=== PATIENT | male | born 1975 | race Caucasian/White ===

== ENCOUNTER 2017-02-07 15:41 | Inpatient (IN) | payer OTHER ==
[~2017-02-07] VITALS: Ht 172.7 cm; Wt 53.5 kg
[~2017-02-07 15:41] MED LIST: BUPR2TAB3 SL; INDO50CA PO; POLY17PO4 GT; QUET50TA PO; RANI150T12 PO; [UNRECOGNIZED DRUG - CODE] TP
--- NOTE | 2017-02-07 19:25 | NUR ---
PRE-ADMISSION NOTE Patient is a 42-year-old male, seen at intake, alert and oriented x4, noted with moderate anxiety and a headache at this time. SN discussed with patient the admission policies of the unit. Patient is coherent and able to respond to questions appropriately. Patient is ambulatory with steady gait. Vital signs taken and as follows: BP: 141/74, P: 82, R: 18, O2: 98%, T: 98.6, Pain: 7/10. Patient verbalized understanding of instructions and teachings regarding disposal of controlled home medications, unit protocols such as taking of vital signs Q4H and handling and disposal of contraband. Will continue with admission upon pt's arrival on the unit.
[2017-02-07] MEDS ORDERED: LORAZEPAM 2 MG/1 ML VIAL IM PRN (19:45)
[2017-02-07] MEDS ORDERED: ONDANSETRON ODT 4 MG TAB.RAPDIS SL PRN (19:45)
[2017-02-07] MEDS ORDERED: ONDANSETRON 4 MG/2 ML VIAL IM PRN (19:45)
[2017-02-07] MEDS ORDERED: LOPERAMIDE HCL 2 MG CAPSULE PO PRN ×2 (19:45)
[2017-02-07] MEDS ORDERED: DIAZEPAM 5 MG TABLET PO PRN (19:45)
[2017-02-07] MEDS ORDERED: DICYCLOMINE HCL 20 MG TABLET PO PRN (19:45)
[2017-02-07] MEDS ORDERED: diphenhydrAMINE 50 MG CAPSULE PO PRN (19:45)
[2017-02-07] MEDS ORDERED: DIAZEPAM 10 MG TABLET PO PRN (19:45)
[2017-02-07] MEDS ORDERED: MAG HYDROX/AL HYDROX/SIMETH 30 ML LIQUID UDC PO PRN (19:45)
[2017-02-07] MEDS ORDERED: MIRALAX 17 GM POWD.PACK PO PRN (19:45)
[2017-02-07] MEDS ORDERED: IBUPROFEN 400 MG TABLET PO PRN (19:45)
[2017-02-07] MEDS ORDERED: BUPRENORPHINE HCL 2 MG TAB.SUBL SL PRN (19:45)
[2017-02-07] MEDS: METHOCARBAMOL 750 MG TABLET PO PRN (19:53)
[2017-02-07] MEDS: CLONIDINE HCL 0.1 MG TABLET PO PRN (19:53)
[2017-02-07] MEDS: DIAZEPAM 10 MG TABLET PO PRN (19:54)
--- NOTE | 2017-02-07 19:55 | NUR ---
PRN CLONIDINE, VALIUM, & ROBAXIN Patient has a BP of 141/74, reports moderate anxiety, headache of 8/10 and generalized body aches of 7/10. PRN Clonidine, Valium, and Robaxin given PO. Patient's respirations are even and unlabored, 18/min at this time. Patient denies SOB or chest pain. Patient's current CIWA is 15, COWS is 15. Patient reports that he has had loose bowel movements for that past 2 days, however, pt states he took Imodium prior to his arrival; therefore patient refused PRN Imodium. Safety measures in place, bed locked in low position, side rails up x2, call light within reach. Will reassess in one hour.
[2017-02-07 19:56] LABS: *AMPHETAMINE, URINE NEGATIVE (NEGATIVE); *BARBITURATE, URINE NEGATIVE (NEGATIVE); *CANNABINOID, URINE POSITIVE (NEGATIVE); *COCCAINE, URINE NEGATIVE (NEGATIVE); *OPIATE, URINE POSITIVE (NEGATIVE); *PHENCYCLIDINE SCREEN,URINE NEGATIVE (NEGATIVE)
[2017-02-07] MEDS ORDERED: CLONIDINE HCL 0.1 MG TABLET ONE (19:56)
[2017-02-07] MEDS ORDERED: LOPERAMIDE HCL 2 MG CAPSULE ONE (19:56)
[2017-02-07] MEDS ORDERED: METHOCARBAMOL 750 MG TABLET ONE (19:56)
[2017-02-07 20:00] VITALS: BP 141/74
[2017-02-07] MEDS ORDERED: DIAZEPAM 10 MG TABLET ONE (20:08)
[2017-02-07] MEDS ORDERED: PANT40TA4 PO (20:09)
[2017-02-07] MEDS ORDERED: OMEP20TA20 PO (20:09)
[2017-02-07] MEDS ORDERED: VALA500T34 PO (20:09)
[2017-02-07 20:40] LABS: BASOPHILS % (AUTO) 0.4 % (0.0-2.0); EOSINOPHILS % (AUTO) 0.4 % (0.0-7.0); HEMATOCRIT 35.6 % (36.7-47.1); HEMOGLOBIN 11.9 g/dL (12.5-16.3); LYMPHOCYTES # (AUTO) 1.6 K/uL (20.0-40.0); LYMPHOCYTES % (AUTO) 26.9 % (20.5-51.5); MEAN CORPUSCULAR HEMOGLOBIN 27.3 uug (23.8-33.4); MEAN CORPUSCULAR HGB CONC 34 g/dL (32.5-36.3); MEAN CORPUSCULAR VOLUME 81.5 fL (73.0-96.2); MONOCYTES # (AUTO) 0.4 K/uL (2.0-10.0); MONOCYTES % (AUTO) 7.3 % (0.0-11.0); NEUTROPHILS # (AUTO) 3.8 K/uL (1.8-8.9); PLATELET COUNT (AUTO) 263 K/uL (152-348); RED BLOOD CELL COUNT(AUTO) 4.36 MIL/uL (4.06-5.63); WHITE BLOOD COUNT (AUTO) 5.8 K/uL (3.6-10.2)
[2017-02-07 20:45] LABS: ALANINE AMINOTRANSFERASE 21 U/L (16-63); ALKALINE PHOSPHATASE 84 U/L (50-136); AMYLASE 31 U/L (25-115); ASPARTATE AMINOTRANSFERASE 19 U/L (15-37); BILIRUBIN,TOTAL 0.7 mg/dL (0.2-1.0); CARBON DIOXIDE 29 mmol/L (21-32); CHLORIDE 105 mmol/L (98-107); CREATININE 1.1 mg/dL (0.6-1.3); GLUCOSE 104 mg/dL (74-106); LIPASE 150 U/L (73-393); MAGNESIUM 1.9 mg/dL (1.8-2.4); POTASSIUM 4.1 mmol/L (3.5-5.1); TOTAL PROTEIN, SERUM 7.2 g/dL (6.4-8.2); UREA NITROGEN, BLOOD 13 mg/dL (7-18)
[2017-02-07 20:52] LABS: THYROID STIMULATING HORMONE 1.807 mIU/mL (0.358-3.740)
[2017-02-07 20:54] LABS: ETHANOL < 3 MG/DL (0-0)
--- NOTE | 2017-02-07 20:55 | NUR ---
PRN CLONIDINE, VALIUM, & ROBAXIN REASSESSMENT Patient is resting in bed, watching television. Patient reports "feeling better" and feeling less anxious. Patient reports decrease in pain for headache as well as body aches. PRNs effective. Respirations even and unlabored. Safety measures in place, bed locked in low position, side rails up x2, call light within reach. Will continue to monitor.
--- NOTE | 2017-02-07 21:20 | NUR ---
ADMISSION NOTE Patient is a 42-year-old male admitted on 02/07/17 for xanax and subutex dependence, arrived on the unit at 1945. Patient has NKFA and an allergy to trazodone. Pt denies history of seizures. Pt was able to provide UDS at intake. Upon admission CIWA 15, COWS 15. BP: 141/74, P: 82, R: 18, O2: 98%, T: 98.6, Pain: 7/10. Weight 118 lbs., height 5;8". Pt reports he does not have a PCP, smokes 1/2 a pack daily, and denies being hospitalized in the past 30 days. Pt is able to understand and respond to all questions pertaining to his hospitalization. Substance Abuse History is as follows: 1. Xanax 6mg PO daily for the last 5 months. Last intake of 6mg on 02/06/17. 2. Subutex 8mg daily PO for the last 5 months. Last intake of 8mg was on 02/05/17. Patient's longest period of sobriety from heroin was from 2010 to present day. 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 Pt reports that his mother is an alcoholic. PMH: Patient denies any past medical history with exception to his hemicrania continua. Pt denies any hx of seizures. Patient brought medications from home, which were reconciled in the patient's med profile. Upon assessment, patient was alert and oriented x4, presented with anxiety, chills and flushing, mild nausea, headache of 8/10, and patient reports diarrhea for the last 2 days. Patient's respirations are even and unlabored. Denies SOB or chest pain. Bowel sounds active x 4, abdomen soft and non-tender. PERRLA. Patient presents with mild periorbital hematoma of the left eye. When asked about it, patient states that he was wrestling with his 8-year-old son, and his son accidentally "elbowed" him in the left eye. Patient also has a small abrasion on his right hand, sustained from patient's trampoline in the backyard; patient's skin is otherwise intact. Pt denies SI/HI. Educational information provided and left at bedside. Patient was oriented to room and unit and encouraged to notify nurse/staff with any concerns. Safety measures in place. Call light within reach, side rails up x 2, bed locked and in low position. Will continue to monitor.
[2017-02-07] MEDS ORDERED: QUETIAPINE FUMARATE 25 MG TABLET PO ONE (22:30)
--- NOTE | 2017-02-07 22:32 | NUR ---
ONE TIME SEROQUEL Patient reports inability to sleep; one time order for Seroquel 50 mg obtained and given PO. Safety measures in place, will reassess in one hour.
--- NOTE | 2017-02-07 23:32 | NUR ---
ONE TIME SEROQUEL REASSESSMENT Patient is resting in bed with eyes closed; PRN Seroquel effective. Respirations are 16/min, even and unlabored. Safety measures in place, will continue to monitor.
[2017-02-07] MEDS ORDERED: ONDA4TAB10 PO (23:34)
[2017-02-07] MEDS ORDERED: METH-406 PO (23:34)
[2017-02-07] MEDS ORDERED: ALPR1TAB7 PO (23:34)
[2017-02-08] VITALS: BP 90/47
--- NOTE | 2017-02-08 | NUR ---
MIDNIGHT COWS & CIWA DEFERRED Midnight COWS and CIWA deferred due to patient asleep; to be assessed and scored while patient is awake per protocol. Patient's respirations are 16/min, even and unlabored. Safety measures in place, bed locked in low position, side rails up x2, call light within reach. Will continue to monitor.
--- NOTE | 2017-02-08 04:00 | NUR ---
4AM VITALS REFUSED, COWS & CIWA DEFERRED 4AM COWS and CIWA deferred due to patient asleep; to be assessed and scored while patient is awake per protocol. Patient's respirations are 16/min, even and unlabored. Safety measures in place, bed locked in low position, side rails up x2, call light within reach. Will continue to monitor.
[2017-02-08] MEDS ORDERED: QUET50TA PO (04:39)
--- NOTE | 2017-02-08 07:10 | NUR ---
END OF SHIFT Patient is a 42-year-old male admitted on 02/07/17 for xanax and subutex dependence. Patient has NKFA and an allergy to trazodone. Patient is FULL code and on a regular diet. Pt denies history of seizures. Patient denies any past medical history with exception to his hemicrania continua (right-side). Patient presents with mild periorbital hematoma of the left eye. Patient also has a small abrasion on his right hand, sustained from patient's trampoline in the backyard. Patient slept for 6 hours, total intake 796 mL, void x2, stool x0. PRN Clonidine, Valium, Robaxin and Seroquel were given; PRNs effective. Last CIWA was 15 and last COWS was 15. Safety measures in place. Call light within reach, side rails up x 2, bed locked and in low position. Will endorse to day shift.
--- NOTE | 2017-02-08 07:30 | NUR ---
START OF SHIFT NOTE Received report from night nurse, 42-year-old male admitted on for Xanax and Subutex dependence. Patient has PMH of hemicrania continua (right-side) Per endorsement pt received PRN Clonidine, Valium, Robaxin, Seroquel, noted to be effective,last CIWA/COWS was 15, slept for 6 hours. Received patient in room alert and oriented x 4. Patient presented with anxiety, agitation, chills, sweats, Tremors. Educated patient on the current plan of care for the day and medication regimen. Safety measures in place. call light kept with in reach, Will continue to monitor.
[2017-02-08 08:00] VITALS: BP 110/64
[2017-02-08] MEDS: MULTIVITAMINS,THERAPEUTIC TABLET PO SCH (08:59)
[2017-02-08] MEDS: DIAZEPAM 10 MG TABLET PO PRN (08:59)
--- NOTE | 2017-02-08 08:59 | NUR ---
PRN VALIUM/SUBUTEX Patient presented with anxiety, chills, sweats, light headed, Tremors, runny nose, body aches, CIWA/COWS score noted 13. PRN Valium 10mg PO and Subutex 4mg SL given as ordered. Will cont to monitor and reassess the pt.
[2017-02-08] MEDS ORDERED: TUBERCULIN,PURIF.PROT.DERIV. 5 TU/0.1 ML TEST ID ONE (09:00)
--- NOTE | 2017-02-08 09:27 | NUR ---
SUBUTEX REASSESSMENT Per patient PRN Subutex was effective in reducing patient's withdrawal symptoms COWS score noted 7.
[2017-02-08] MEDS: ACETAMINOPHEN 325 MG TABLET PO PRN ×2 (09:45→16:53)
--- NOTE | 2017-02-08 09:45 | NUR ---
PRN TYLENOL Patient was c/o headache 07/02, PRN Tylenol 650mg Po administered as ordered, Will cont to monitor and reassess the Pt.
--- NOTE | 2017-02-08 09:57 | NUR ---
VALIUM REASSESSMENT Per patient PRN Valium was effective in reducing patient's withdrawal symptoms CIWA score noted 5.
--- NOTE | 2017-02-08 10:45 | NUR ---
TYLENOL REASSESSMENT Patient stated medication was effective headache decreased to 1/.
[2017-02-08 12:00] VITALS: BP 107/67
[2017-02-08] MEDS: DIAZEPAM 10 MG TABLET PO SCH ×3 (13:03→20:42)
[2017-02-08] MEDS: INDOMETHACIN 50 MG PO PRN ×2 (13:55→20:43)
[2017-02-08] MEDS: PANTOPRAZOLE SODIUM 40 MG TABLET.DR PO SCH ×2 (13:55→16:54)
[2017-02-08] MEDS: METHOCARBAMOL 750 MG TABLET PO PRN ×2 (13:55→20:41)
--- NOTE | 2017-02-08 13:58 | NUR ---
Indomethacin 50mg 1 tab po prn for headache and Robaxin 750mg po prn given for muscle aches.
[2017-02-08] MEDS: NICOTINE 7 MG/24HR PATCH TD SCH (14:00)
[2017-02-08] MEDS: BOOST PLUS 237 ML LIQUID (RICH CHOCOLATE) PO SCH ×2 (14:00→17:42)
[2017-02-08] MEDS ORDERED: NICOTINE POLACRILEX 4 MG GUM-PK OF TEN BC PRN (14:00)
[2017-02-08] MEDS: GABAPENTIN 300 MG CAPSULE PO SCH (14:02)
--- NOTE | 2017-02-08 14:58 | NUR ---
ROBAXIN/INDOMETHACIN REASSESSMENT Patient stated medications was effective headache subside to 1/10 and muscle aches decreased.
[2017-02-08 16:00] VITALS: BP 115/62
--- NOTE | 2017-02-08 16:53 | NUR ---
PRN MEDICATION Pt c/o of generalized pain rating it 4/10 requested something for relief, non-pharmacological techniques interventions provided x3 and were not effective. PRN Tylenol 650mg administered PO, educated pt about s/e of medication and when to contact nurse. all needs met, all safety measures in place, will continue to
[2017-02-08] MEDS: VALACYCLOVIR HCL 500 MG TABLET PO SCH (17:00)
--- NOTE | 2017-02-08 17:53 | NUR ---
PRN TYLENOL REASSESSMENT Per patient Tylenol was effective in alleviating patient headache 03/04.
--- NOTE | 2017-02-08 19:10 | NUR ---
END OF SHIFT NOTE Patient cont with Valium taper tolerating well. During shift patient refused Nicotine patch, Valacyclovir offered x3 risk and benefits explained patient verbalized understanding. Patient received x1 PRN Valium/Subutex, x2 Tylenol and Indomethacin noted to be effective. Vital signs remained WNL. Encourage Po fluids as tolerated. Last CIWA score was 6/COWS-6 @ 1600. Skin intact warm and dry to touch. Patient attended groups and activities. All needs attended, Safety measures in place. Patient endorsed to night nurse in stable condition.
--- NOTE | 2017-02-08 19:30 | NUR ---
START OF SHIFT NOTE Pt is a 42-year-old male admitted on for Xanax and Subutex dependence. Patient has PMH of hemicrania continua,right side. Received patient in room alert and oriented x 4.FULL CODE status,NKA,allergic to Trazodone.No HX of seizures noted.On fall and seizure precautions. Patient continues on Valium and Subutex tapers as ordered. Last COWS/CIWA=6.All safety measures in place; call light kept with in reach, Will continue to monitor.
[2017-02-08 20:00] VITALS: BP 127/63
[2017-02-08] MEDS: CLONIDINE HCL 0.1 MG TABLET PO PRN (20:41)
--- NOTE | 2017-02-08 20:45 | NUR ---
PRN MEDS PT c/o anxiety,myalgia and migraine headache.PRN meds Clonidine,Robaxin and Indomethacin given respectively as ordered;will monitor for effectiveness.
[2017-02-08] MEDS ORDERED: GABAPENTIN 300 MG CAPSULE PO SCH (21:00)
[2017-02-08] MEDS ORDERED: BUPRENORPHINE HCL 2 MG TAB.SUBL SL SCH (21:00)
--- NOTE | 2017-02-08 21:00 | NUR ---
PT REFUSED TO TAKE SUBUTEX ORDERED.
[2017-02-08] MEDS: QUETIAPINE FUMARATE 25 MG TABLET PO PRN (21:58)
--- NOTE | 2017-02-08 22:00 | NUR ---
PRN MED AND F/U PT STATES FEELING BETTER ,HEADACHE/MYALGIA,ANXIETY DECREASED.PRN SEROQUEL GIVEN ORDERED FOR C/O INSOMNIA.PT REQUESTED TO NOT BE WOKEN UP FOR V/S IF HE IS SLEEPING.WILL CONTINUE TO MONITOR.
--- NOTE | 2017-02-08 23:00 | NUR ---
PRN F/U Pt is in deep sleep; respirations even and unlabored. Safety measures in place, bed locked in low position, side rails up x2, call light within reach. Will continue to monitor.
--- NOTE | 2017-02-09 | NUR ---
V/S REFUSED, COWS & CIWA DEFERRED Pt is in deep sleep,did not want to be woken up for V/S;COWS/CIWA deferred due to sleep. respirations are 16/min, even and unlabored. Safety measures in place, bed locked in low position, side rails up x2, call light within reach. Will continue to monitor.
--- NOTE | 2017-02-09 04:00 | NUR ---
V/S REFUSED, COWS & CIWA DEFERRED Pt remains fast asleep,did not want to be woken up for V/S;COWS/CIWA deferred due to sleep. respirations are 16/min, even and unlabored. Safety measures in place, bed locked in low position, side rails up x2, call light within reach. Will continue to monitor.
--- NOTE | 2017-02-09 06:35 | NUR ---
END OF SHIFT NOTE Pt is a 42-year-old male admitted on for Xanax and Subutex dependence. Patient has PMH of hemicrania continua,right side. Received patient in room alert and oriented x 4.FULL CODE status,NKA,allergic to Trazodone.No HX of seizures noted.On fall and seizure precautions. Patient continues on Valium and Subutex tapers as ordered.Pt refused to take Subutex last night.PRN meds Robaxin,Clonidine,Indomethacin and Seroquel were given with good effect;pt slept 7 hrs;fluid intake was 855 mls,voided x 1. Last COWS/CIWA=6 at 2000 last night.Midnight and 0400 assessments deferred due to sleep.All safety measures in place; call light kept with in reach, Will continue to monitor.
--- NOTE | 2017-02-09 07:26 | NUR ---
START OF SHIFT NOTE Received report from night nurse, 42-year-old male admitted on for Xanax and Subutex dependence. Patient has PMH of hemicrania continua (right-side) Per endorsement pt received PRN Clonidine, Valium, Robaxin, Seroquel, Indomethacin noted to be effective,last CIWA/COWS was 6, slept for 7 hours. Received patient in room alert and oriented x 4. Patient presented with anxiety, agitation, chills. Educated patient on the current plan of care for the day and medication regimen. Safety measures in place. call light kept with in reach, Will continue to monitor.
[2017-02-09 08:00] VITALS: BP 107/66
[2017-02-09] MEDS: PANTOPRAZOLE SODIUM 40 MG TABLET.DR PO SCH ×2 (08:59→21:20)
[2017-02-09] MEDS: MULTIVITAMINS,THERAPEUTIC TABLET PO SCH (08:59)
[2017-02-09] MEDS: DIAZEPAM 10 MG TABLET PO SCH ×3 (09:00→21:23)
[2017-02-09] MEDS ORDERED: BUPRENORPHINE HCL 2 MG TAB.SUBL SL SCH ×3 (09:00→21:00)
[2017-02-09] MEDS: INDOMETHACIN 50 MG PO PRN ×3 (09:00→21:19)
[2017-02-09] MEDS: NICOTINE 7 MG/24HR PATCH TD SCH (09:00)
[2017-02-09] MEDS: GABAPENTIN 300 MG CAPSULE PO SCH ×2 (09:00→14:31)
[2017-02-09] MEDS: VALACYCLOVIR HCL 500 MG TABLET PO SCH ×4 (09:00→21:00)
--- NOTE | 2017-02-09 09:00 | NUR ---
PRN INDOMETHACIN Patient reported migraine headache 08/02, PRN Indomethacin as ordered, will cont to monitor and reassess.
--- NOTE | 2017-02-09 09:00 | NUR ---
REFUSED VALACYCLOVIR/NICOTINE PATCH Patient refused his scheduled Valacyclovir and Nicotine patch offered x3 risk and benefits explained, pt verbalized understanding still refused.
[2017-02-09] MEDS: BOOST PLUS 237 ML LIQUID (RICH CHOCOLATE) PO SCH ×3 (09:01→16:07)
[2017-02-09] MEDS: METHOCARBAMOL 750 MG TABLET PO PRN ×2 (09:55→21:23)
--- NOTE | 2017-02-09 09:55 | NUR ---
PRN MIRALAX Patient c/o of constipation, non pharmacological intervention ineffective. PRN Miralax given as ordered. Will cont to monitor and reassess.
--- NOTE | 2017-02-09 10:00 | NUR ---
INDOMETHACIN REASSESSMENT Patient staed medication was effective feeling relief from migraine 03/04. Addendum: 02/09/17 at 1754 by ROSANA EID LVN Stated
--- NOTE | 2017-02-09 10:55 | NUR ---
MIRALAX REASSESSMENT patient reported Miralax ineffective at this time.
[2017-02-09 12:00] VITALS: BP 112/64
[2017-02-09 12:07] LABS: HEPATITIS B SURFACE AG Negative (Negative)
[2017-02-09] MEDS: ACETAMINOPHEN 325 MG TABLET PO PRN (12:17)
--- NOTE | 2017-02-09 12:17 | NUR ---
PRN TYLENOL Patient was c/o headache 06/02, PRN Tylenol 650mg Po administered as ordered, Will cont to monitor and reassess the Pt.
--- NOTE | 2017-02-09 13:17 | NUR ---
PRN TYLENOL REASSESSMENT Per patient Tylenol was effective in alleviating patient headache 0/10.
[2017-02-09] MEDS: CLONIDINE HCL 0.1 MG TABLET PO SCH ×2 (14:31→21:00)
--- NOTE | 2017-02-09 14:48 | NUR ---
THerapist prompted client to attend group today. Client agreed to attend.
[2017-02-09 16:00] VITALS: BP 104/62
--- NOTE | 2017-02-09 16:07 | NUR ---
PRN INDOMETHACIN Patient reported migraine headache 06/02, PRN Indomethacin as ordered, will cont to monitor and reassess.
--- NOTE | 2017-02-09 17:07 | NUR ---
INDOMETHACIN REASSESSMENT Patient stated medication was effective feeling relief from migraine 03/04.
--- NOTE | 2017-02-09 19:05 | NUR ---
END OF SHIFT NOTE Patient cont with Valium taper tolerating well. During shift patient refused Nicotine patch, Valacyclovir offered x3 risk and benefits explained patient verbalized understanding. Patient received x1 PRN Miralax, Tylenol and Indomethacin noted to be effective. Vital signs remained WNL. Encourage Po fluids as tolerated. Last CIWA score was 4/COWS-4 @1600. Skin intact warm and dry to touch. Patient attended groups and activities. All needs attended, Safety measures in place. Patient endorsed to night nurse in stable condition.
--- NOTE | 2017-02-09 19:30 | NUR ---
START OF SHIFT NOTE Pt is a 42-year-old male admitted on for Xanax and Subutex dependence. Patient has PMH of hemicrania continua,right side. Received patient in room alert and oriented x 4.FULL CODE status,NKA,allergic to Trazodone.No HX of seizures noted.On fall and seizure precautions. Patient continues on Valium and Subutex tapers as ordered.Pt received in atable condition. Last COWS/CIWA=4.All safety measures in place; call light kept with in reach, Will continue to monitor.
[2017-02-09 20:00] VITALS: BP 108/60
[2017-02-09] MEDS ORDERED: GABAPENTIN 300 MG CAPSULE PO SCH (21:00)
--- NOTE | 2017-02-09 21:30 | NUR ---
PRN INDOMETHACIN AND ROBAXIN GIVEN ORDERED FOR C/O MIGRAINE SALINAS AND MYALGIA RESPECTIVELY.WILL MONITOR FOR EFFECTIVENESS.
--- NOTE | 2017-02-09 21:30 | NUR ---
MED REFUSED/HELD-- PT REFUSED TO TAKE VALTREX AND SUBUTEX ORDERED.CLONIDINE HELD DUE TO LOW B/P OF 108/60.
[2017-02-09] MEDS: QUETIAPINE FUMARATE 25 MG TABLET PO PRN (21:52)
--- NOTE | 2017-02-09 21:55 | NUR ---
PRN SEROQUEL GIVEN ORDERED FOR C/O INSOMNIA.
--- NOTE | 2017-02-09 22:30 | NUR ---
PRN F/U PT STATES FEELING BETTER HEAD AND BODY ACHE RELIEVED.PT IS GETTING SLEEPY. HE IS REQUESTING TO BE NOT WOKEN UP FOR V/S IF HE IS SLEEPING.
--- NOTE | 2017-02-10 04:00 | NUR ---
V/S REFUSED, COWS & CIWA DEFERRED Pt remains fast sleep,did not want to be woken up for V/S;COWS/CIWA deferred due to sleep. respirations are 16/min, even and unlabored. Safety measures in place, bed locked in low position, side rails up x2, call light within reach. Will continue to monitor.
--- NOTE | 2017-02-10 06:43 | NUR ---
END OF SHIFT Pt is a 42-year-old male admitted on for Xanax and Subutex dependence. Patient has PMH of hemicrania continua,right side. Received patient in room alert and oriented x 4.FULL CODE status,NKA,allergic to Trazodone.No HX of seizures noted.On fall and seizure precautions. Patient continues on Valium and Subutex tapers as ordered.PRN Seroquel ,Robaxin and Indomethacin were given with good effect.Pt refused Valtrex and Subutex.Clonidine was held d/t low blood pressure.Pt slept 7 hrs,fluid intake was 2000 mls,voided x 4. Last COWS/CIWA=4.All safety measures in place; call light kept with in reach, Will continue to monitor.
--- NOTE | 2017-02-10 07:52 | NUR ---
START OF SHIFT NOTE Received report from night nurse, 42-year-old male admitted on for Xanax and Subutex dependence. Patient has PMH of hemicrania continua (right-side) Per endorsement pt received PRN Robaxin, Seroquel, Indomethacin noted to be effective,last CIWA/COWS was 4, slept for 7 hours. Received patient in room alert and oriented x 4.Educated patient on the current plan of care for the day and medication regimen. Safety measures in place. call light kept with in reach, Will continue to monitor.
[2017-02-10 08:00] VITALS: BP 106/62
[2017-02-10] MEDS: MULTIVITAMINS,THERAPEUTIC TABLET PO SCH (08:49)
[2017-02-10] MEDS: GABAPENTIN 300 MG CAPSULE PO SCH ×3 (08:49→21:21)
[2017-02-10] MEDS: DIAZEPAM 5 MG TABLET PO SCH ×4 (08:49→16:40)
[2017-02-10] MEDS: PANTOPRAZOLE SODIUM 40 MG TABLET.DR PO SCH ×2 (08:49→21:20)
[2017-02-10] MEDS: BOOST PLUS 237 ML LIQUID (RICH CHOCOLATE) PO SCH ×3 (08:53→16:40)
[2017-02-10] MEDS: NICOTINE 7 MG/24HR PATCH TD SCH (09:00)
[2017-02-10] MEDS ORDERED: BUPRENORPHINE HCL 2 MG TAB.SUBL SL SCH (09:00)
[2017-02-10] MEDS: INDOMETHACIN 50 MG PO PRN ×3 (09:33→21:26)
--- NOTE | 2017-02-10 09:33 | NUR ---
PRN INDOMETHACIN/INDOMETHACIN Patient reported migraine headache 07/02, and myalgia PRN Indomethacin 50mg Po/Robaxin 750mg Po given as ordered, will cont to monitor and reassess. Addendum: 02/10/17 at 1744 by ROSANA EID LVN PRN INDOMETHACIN/ROBAXIN
[2017-02-10] MEDS: CLONIDINE HCL 0.1 MG TABLET PO SCH ×3 (09:34→21:20)
[2017-02-10] MEDS: METHOCARBAMOL 750 MG TABLET PO PRN ×2 (09:34→21:20)
--- NOTE | 2017-02-10 10:33 | NUR ---
INDOMETHACIN/ROBAXIN REASSESSMENT Patient stated medication was effective feeling relief from migraine 03/04 and feeling relief from muscle cramps.
--- NOTE | 2017-02-10 10:41 | NUR ---
Therapist prompted client about group times. Client stated he would attend all groups today.
[2017-02-10 12:00] VITALS: BP 118/64
[2017-02-10] MEDS ORDERED: NICOTINE 14 MG/24HR PATCH TD PRN (12:45)
[2017-02-10] MEDS: BACLOFEN 10 MG TABLET PO SCH ×2 (14:26→21:20)
[2017-02-10 16:00] VITALS: BP 114/62
--- NOTE | 2017-02-10 16:40 | NUR ---
PRN INDOMETHACIN Patient reported migraine headache 06/02, PRN Indomethacin as ordered, will cont to monitor and reassess.
--- NOTE | 2017-02-10 17:40 | NUR ---
INDOMETHACIN REASSESSMENT Patient reported medication was effective pain decreased to 1/10.
--- NOTE | 2017-02-10 19:00 | NUR ---
Start of Shift Patient Received. Patient is in his room, awake, alert and verbally responsive. Breathing even and non labored. Patient is a 42 year old male admitted on 02/07/17 for Benzo Dependence under the care of Dr. Jaramillo and continues on a 5 day Valium taper. Patient verbalizes allergies to Trazodone, wishes to be full code, following a Regular Diet, wishes to be full code, placed on fall and seizure precautions, and skin noted with bruise to left eye and right hand abrasion. 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 Per endorsement, patient received Indomethacin x2 and Robaxin with medications noted to be effective. Last noted COWS 3 and CIWA 3. All needs attended to promptly. Will continue plan of care as ordered.
--- NOTE | 2017-02-10 19:07 | NUR ---
END OF SHIFT NOTE Patient cont with Valium taper tolerating well. During shift patient refused Nicotine patch offered x3 risk and benefits explained patient verbalized understanding. Patient received x2 PRN Indomethacin and Robaxin noted to be effective. Vital signs remained WNL. Encourage Po fluids as tolerated. Last CIWA score was 3/COWS-3@1600. Skin intact warm and dry to touch. Patient attended groups and activities. All needs attended, Safety measures in place. Patient endorsed to night nurse in stable condition.
[2017-02-10 20:06] VITALS: BP 127/79
[2017-02-10] MEDS ORDERED: DIAZEPAM 10 MG TABLET PO SCH (21:00)
[2017-02-10] MEDS: QUETIAPINE FUMARATE 25 MG TABLET PO PRN (21:20)
--- NOTE | 2017-02-10 21:30 | NUR ---
PRN Medication Administration Patient is verbalizing 8/10 headache, body aches, and inability of falling asleep. Patient noted to be very irritable, restless, and verbalizing increased anxiety due to pain. PRN Indomethacin, Robaxin, and Seroquel administered as per order. Patient also noted verbalizing "I dont want you to bother me while Im sleeping. I really struggle with sleeping and once I fall asleep it is hard for me to go back to sleep if Im awakened. I dont want you to run my vitals." Risks and Benefits explained. Patient verbalized understanding. Will continue to monitor.
--- NOTE | 2017-02-10 22:30 | NUR ---
PRN Medication Reassessment Patient noted in bed sleeping. Breathing even and non labored. Patient was given PRN Robaxin, Indomethacin, and Seroquel noted to be effective. No Restlessness or discomfort noted. No facial grimacing noted. Patient continues to sleep well with no interruptions. Will continue to monitor.
--- NOTE | 2017-02-11 | NUR ---
Vitals Refused Patient refused vitals due to history of insomnia. Patient noted in bed sleeping. Breathing even and non labored. Patient respirations noted to be 14. All needs attended to promptly. Will continue to monitor.
--- NOTE | 2017-02-11 07:05 | NUR ---
End of Shift Patient is in his room sleeping. Breathing even and non labored. Patient is a 25 year old male admitted on 02/04/14 for Benzo and Opiate Dependence under the care of Dr. Jaramillo. Patient has completed a 6 day Phenobarbital taper and 6 day Subutex taper. Patient verbalizes allergies to Naloxone, Full Code, Regular Diet, placed on fall and seizure precautions, and skin noted intact. Past medical history noted as Anxiety, Depression, Bipolar, and history of seizures due to withdrawal. Patient is set for discharge today 02/11/17. No PRN Medications administered. All needs attended to promptly. Will endorse to continue plan of care as ordered.
[2017-02-11 08:01] VITALS: BP 116/50
--- NOTE | 2017-02-11 08:03 | NUR ---
START OF SHIFT: RECEIVED PT A/O X 4. HE STATES HE SLEPT OK. HE REPORTS ANXIETY RESTLESSNESS,BODY ACHES, AND H/A 05/02. VALIUM TAPER IN PROGRESS TO MANAGE S/S OF W/D. COWS 10 CIWA 10. ENCOURAGED INCREASED FLUIDS TO ASSIST IN FACILITATING DETOX PROCESS. WILL CONTINUE TO OFFER SUPPORT AND MONITOR AND MANAGE S/S OF W/D.
[2017-02-11] MEDS: GABAPENTIN 300 MG CAPSULE PO SCH (08:25)
[2017-02-11] MEDS: PANTOPRAZOLE SODIUM 40 MG TABLET.DR PO SCH ×2 (08:25→21:17)
[2017-02-11] MEDS: MULTIVITAMINS,THERAPEUTIC TABLET PO SCH (08:25)
[2017-02-11] MEDS: DIAZEPAM 5 MG TABLET PO SCH ×3 (08:25→21:17)
[2017-02-11] MEDS: BACLOFEN 10 MG TABLET PO SCH (08:26)
[2017-02-11] MEDS: BOOST PLUS 237 ML LIQUID (RICH CHOCOLATE) PO SCH ×3 (08:27→17:45)
[2017-02-11] MEDS: METHOCARBAMOL 750 MG TABLET PO PRN ×2 (08:27→14:46)
[2017-02-11] MEDS: INDOMETHACIN 50 MG PO PRN ×3 (08:28→18:01)
[2017-02-11] MEDS: CLONIDINE HCL 0.1 MG TABLET PO SCH ×3 (08:29→21:17)
[2017-02-11] MEDS ORDERED: NICOTINE 7 MG/24HR PATCH TD PRN (09:00)
[2017-02-11] MEDS ORDERED: KETOROLAC TROMETHAMINE 30 MG INJ IM PRN (11:15)
[2017-02-11 12:00] VITALS: BP 111/51
[2017-02-11] MEDS: MAGNESIUM HYDROXIDE 30 ML LIQUID UDC PO PRN (12:40)
[2017-02-11] MEDS: GABAPENTIN 400 MG CAPSULE PO SCH ×2 (14:40→21:17)
[2017-02-11] MEDS: BACLOFEN 20 MG TABLET PO SCH ×2 (14:43→21:17)
[2017-02-11 16:00] VITALS: BP 122/60
[2017-02-11] MEDS ORDERED: HYDROXYZINE PAMOATE 25 MG CAPSULE PO ONE (16:45)
--- NOTE | 2017-02-11 18:19 | NUR ---
END OF SHIFT: PT CONTINUES ON VALIUM TAPER TO MANAGE S/S OF W/D.LAST COWS 6 CIWA 6. PRN ROBAXIN GIVEN X 2 FOR MUSCLE ACHES AND EFFECTIVE. PRN INDOCIN GIVEN FOR FACE AND HEAD PAIN WITH MEALS X 3 AND EFFECTIVE. HE BECAME ANXIOUS AND RESTLESS LATE THIS AFTERNOON AND A ONE TIME ORDER OF VISTARIL 50 MG WAS GIVEN PER MD AND EFFECTIVE. PT IS RECEIVING BOOST WITH MEALS TO ASSIST IN DELIVERING PROPER NUTRITION.HE INTERACTED WITH PEERS AND ATTENDED A GROUP THIS AM. WILL PASS SHIFT REPORT TO ONCSINDY NURSE Addendum: 02/11/17 at 1848 by ARUNA ACOSTA RN M.O.M GIVEN FOR REPORTED CONSTIPATION. PT STATES HE HAS NOT MOVED BOWELS X 2 DAYS. HE IS ALSO DRINKING PRUNE JUICE. NO EFFECTIVENESS OF YET. WILL ENDORSE TO [employer].
--- NOTE | 2017-02-11 19:00 | NUR ---
Start of Shift Patient Received. Patient is in his room, awake, alert and verbally responsive. Breathing even and non labored. Patient is a 42 year old male admitted on 02/07/17 for Benzo Dependence under the care of Dr. Jaramillo and continues on a 5 day Valium taper. Patient verbalizes allergies to Trazodone, Full Code, following a Regular Diet, Full Code, placed on fall and seizure precautions, and skin noted with bruise to left eye and right hand abrasion. 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 Per endorsement, Patient received PRN Robaxin x2, Indomethacin x3, and MOM x1 with all medications noted to be effective. new order for PRN Vistaril obtained. Last noted COWS 9 and CIWA 8. All needs attended to promptly. Will continue plan of care as ordered.
[2017-02-11 20:40] VITALS: BP 118/74
[2017-02-11] MEDS: QUETIAPINE FUMARATE 25 MG TABLET PO PRN (21:18)
--- NOTE | 2017-02-11 21:20 | NUR ---
PRN Medication Administration Patient verbalizing inability of falling asleep. PRN Seroquel administered as per order. Patient also verbalizing "I dont want to have my vitals taken thru the night. I just want to sleep without being awakened." Risks and Benefits explained. Patient verbalized understanding. Will continue to monitor.
--- NOTE | 2017-02-11 22:20 | NUR ---
PRN Medication Reassessment Patient noted in bed sleeping. Breathing even and non labored. Patient was given PRN Robaxin, Indomethacin, and Seroquel noted to be effective. No Restlessness or discomfort noted. No facial grimacing noted. Patient continues to sleep well with no instructions. Will continue to monitor.
--- NOTE | 2017-02-12 00:20 | NUR ---
Vitals Refused Patient refused vitals due to history of insomnia. Patient noted in bed sleeping. Breathing even and non labored. Patient respirations noted to be 16. All needs attended to promptly. Will continue to monitor. Addendum: 02/12/17 at 0133 by ALISA MCKINNEY LVN Amended: Links added.
--- NOTE | 2017-02-12 04:33 | NUR ---
Vitals Refused 0400 Patient refused vitals due to history of insomnia. Patient noted in bed sleeping. Breathing even and non labored. Patient respirations noted to be 16. All needs attended to promptly. Will continue to monitor. Addendum: 02/12/17 at 0433 by ALISA MCKINNEY LVN Amended: Links added.
[2017-02-12] MEDS: INDOMETHACIN 50 MG PO PRN ×3 (07:07→18:17)
--- NOTE | 2017-02-12 07:09 | NUR ---
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 PRN indomethacin administered. Will endorse to morning shift to reassess.
--- NOTE | 2017-02-12 07:10 | NUR ---
End of Shift Patient is in bed sleeping. Breathing even and non labored. Patient is a 42 year old male admitted on 02/07/17 for Benzo Dependence under the care of Dr. Jaramillo and continues on a 5 day Valium taper. Patient verbalizes allergies to Trazodone, Full Code, following a Regular Diet, Full Code, placed on fall and seizure precautions, and skin noted with bruise to left eye and right hand abrasion. 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 Patient was given PRN Seroquel for inability of sleep with medication noted to be effective. Last noted COWS 9 and CIWA 8. All needs attended to promptly. Will endorse to continue plan of care as ordered. Addendum: 02/12/17 at 0736 by ALISA MCKINNEY LVN Patient was given PRN Indomethacin with morning shift to reassessment.
--- NOTE | 2017-02-12 07:24 | NUR ---
BEGINNING OF SHIFT Patient endorsement report received from marine mammal trainer nurse, all pertinent information discussed. Patient is a 42 year old male with admitting Dx: bzo/Opiate dependence. Patient with ongoing 5 day Valium taper as ordered. Patient received awake, alert and oriented x4. Past medical history of: Hemicrania Continua (right side). per marine mammal trainer patient slept for 6 hours. Patient received PRN: Seroquel, and Indomethacin as ordered. Patient with last cow score of: 9 and last ciwa score of: 8;. Patient was educated regarding plan of care for the day and medication regimen. safety measures in place. call light kept with in reach. will continue to monitor.
--- NOTE | 2017-02-12 08:09 | NUR ---
INDOMETHACIN REASSESSMENT Patient reported medication was effective pain decreased to 0/10.
[2017-02-12 08:12] VITALS: BP 113/63
[2017-02-12] MEDS: BOOST PLUS 237 ML LIQUID (RICH CHOCOLATE) PO SCH ×3 (08:29→17:18)
[2017-02-12] MEDS: MULTIVITAMINS,THERAPEUTIC TABLET PO SCH (08:29)
[2017-02-12] MEDS: BACLOFEN 20 MG TABLET PO SCH ×3 (08:29→21:32)
[2017-02-12] MEDS: HYDROXYZINE PAMOATE 25 MG CAPSULE PO PRN ×2 (08:29→21:33)
[2017-02-12] MEDS: CLONIDINE HCL 0.1 MG TABLET PO SCH ×3 (08:30→21:33)
[2017-02-12] MEDS: PANTOPRAZOLE SODIUM 40 MG TABLET.DR PO SCH ×2 (08:30→21:33)
[2017-02-12] MEDS: GABAPENTIN 400 MG CAPSULE PO SCH ×3 (08:30→21:33)
--- NOTE | 2017-02-12 08:30 | NUR ---
PRN VISTARIL Patient c/o increase anxiety, provided patient with non pharmacological interventions with no relief. Administered PRN Vistaril as ordered, will monitor effectiveness of medication.
[2017-02-12] MEDS ORDERED: DIAZEPAM 5 MG TABLET PO SCH (09:00)
--- NOTE | 2017-02-12 09:30 | NUR ---
VISTARIL REASSESSMENT Patient reports medication, effective, feels less anxious. will continue to monitor.
--- NOTE | 2017-02-12 10:23 | NUR ---
Therapist prompted client about group times. Client stated he will attend all groups today.
[2017-02-12 12:27] VITALS: BP 125/61
--- NOTE | 2017-02-12 13:01 | NUR ---
PRN INDOMETHACIN Patient verbalizing increased facial pain due to history of hemicrania continua 08/02. PRN indomethacin administered. Will monitor effectiveness of medication
--- NOTE | 2017-02-12 14:01 | NUR ---
INDOMETHACIN REASSESSMENT Patient reported medication was effective pain decreased to 0/10.
[2017-02-12] MEDS: DIAZEPAM 5 MG TABLET PO SCH ×3 (14:31→21:33)
[2017-02-12 17:51] VITALS: BP 111/58
--- NOTE | 2017-02-12 18:58 | NUR ---
END OF SHIFT Patient alert and oriented x4, vital signs were stable during shift. Patient compliant with therapeutic plan of care. Continue with ongoing 5 day Valium taper as ordered, taper was modified during shift and additional Valium doses were administered as ordered, well tolerated, no ASE noted. Detox medication effective at reducing withdrawal symptoms. 0900 assessment patient presented with: difficulty sitting still, mild bone and joint aches, nasal stuffiness, tremors, irritable, and anxiety with cow score of: 7 and ciwa score of: 9; 1300 assessment patient presented with: heart rate of: 91, mild bone and joint aches, nasal stuffiness, mild anxiety with cow score of: 6 and ciwa score of: 7; 1700 assessment patient presented with: 86, mild bone and joint aches, nasal stuffiness, mild anxiety with cow score of: 6 and ciwa score of: 7. Patient encouraged adequate PO fluid intake as tolerated. Patient encouraged to attend group therapies/sessions to learn new coping skills to prevent relapse. Denies any SI/HI. Patient received PRN: Vistaril and Indomethacin x2, during shift, effective one hour post administration. Safety measures in place. Call light kept with in reach. Patient endorsed to shift production supervisor nurse, all pertinent information discussed.
--- NOTE | 2017-02-12 19:00 | NUR ---
Start of Shift Patient Received. Patient is in his room, awake, alert and verbally responsive. Patient is a 42 year old male admitted on 02/07/17 for Benzo Dependence under the care of Dr. Jaramillo and continues on a 5 day Valium taper. Patient verbalizes allergies to Trazodone, Full Code, following a Regular Diet, Full Code, placed on fall and seizure precautions, and skin noted with bruise to left eye and right hand abrasion. 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 Per endorsement, patient received an extra dose of taper medication of Valium do to increased withdrawal symptoms. Patient received PRN Indomethacin x2 and Vistaril with medications noted to be effective. Last noted COWS 6 and CIWA 7. All needs attended to promptly. Will continue plan of care as ordered.
[2017-02-12 20:20] VITALS: BP 117/72
[2017-02-12] MEDS: QUETIAPINE FUMARATE 25 MG TABLET PO PRN (21:33)
--- NOTE | 2017-02-12 21:35 | NUR ---
PRN Medication Administration Patient is verbalizing increased Anxiety and inability of falling asleep. PRN Vistaril and Seroquel administered. Patient also noted verbalizing "I dont want you to take my vitals. That is why Im taking my sleep medications so I can sleep." Risks and Benefits explained and patient was able to verbalize understanding. All needs attended to promptly. Will continue to monitor.
--- NOTE | 2017-02-12 22:30 | NUR ---
PRN Medication Reassessment Patient is noted in bed sleeping. Breathing even and non labored. Patient was given PRN Vistaril and Seroquel with medications noted to be effective. No restlessness or discomfort noted. Will continue to monitor.
--- NOTE | 2017-02-13 00:58 | NUR ---
Vitals Refused 0000 Patient refused vitals due to history of insomnia. Patient noted in bed sleeping. Breathing even and non labored. Patient respirations noted to be 16. All needs attended to promptly. Will continue to monitor. Addendum: 02/13/17 at 0059 by ALISA MCKINNEY LVN Amended: Links added.
--- NOTE | 2017-02-13 04:00 | NUR ---
Vitals Refused 040 Patient refused vitals due to history of insomnia. Patient noted in bed sleeping. Breathing even and non labored. Patient respirations noted to be 16. All needs attended to promptly. Will continue to monitor. Addendum: 02/13/17 at 0522 by ALISA MCKINNEY LVN Amended: Links added.
--- NOTE | 2017-02-13 07:04 | NUR ---
End of Shift Patient is in bed sleeping. Breathing even and non labored. Patient is a 42 year old male admitted on 02/07/17 for Benzo Dependence and continues on a 5 day Valium taper. Patient is compliant with plan of care as is tolerating taper medication well. Patient received PRN Vistaril and Seroquel with medication noted to be effective. Last noted COWS 6 and CIWA 5. All needs attended to promptly. Will endorse to continue plan of care as ordered.
[2017-02-13] MEDS: INDOMETHACIN 50 MG PO PRN ×3 (07:17→17:22)
--- NOTE | 2017-02-13 07:17 | NUR ---
PRN INDOMETHACIN Patient verbalizing increased facial pain due to history of hemicrania continua 08/02. PRN indomethacin administered. Will monitor effectiveness of medication
--- NOTE | 2017-02-13 07:22 | NUR ---
BEGINNING OF SHIFT Patient endorsement report received from supervisor erection shop nurse, all pertinent information discussed. Patient is a 42 year old male with admitting Dx: bzo/Opiate dependence. Patient with ongoing 5 day Valium taper as ordered. Patient received awake, alert and oriented x4. Past medical history of: Hemicrania Continua (right side). per supervisor erection shop patient slept for 8 hours. Patient received PRN: Vistaril, Seroquel, and Indomethacin as ordered. Patient with last cow score of: 6 and last ciwa score of: 5;. Patient was educated regarding plan of care for the day and medication regimen. safety measures in place. call light kept with in reach. will continue to monitor.
[2017-02-13 08:03] VITALS: BP 136/62
--- NOTE | 2017-02-13 08:17 | NUR ---
INDOMETHACIN REASSESSMENT Patient reported medication was effective pain decreased to 0/10.
[2017-02-13] MEDS: GABAPENTIN 400 MG CAPSULE PO SCH (08:39)
[2017-02-13] MEDS: BACLOFEN 20 MG TABLET PO SCH ×3 (08:39→21:44)
[2017-02-13] MEDS: MULTIVITAMINS,THERAPEUTIC TABLET PO SCH (08:39)
[2017-02-13] MEDS: CLONIDINE HCL 0.1 MG TABLET PO SCH ×3 (08:39→21:44)
[2017-02-13] MEDS: DIAZEPAM 5 MG TABLET PO SCH ×3 (08:39→21:44)
[2017-02-13] MEDS: PANTOPRAZOLE SODIUM 40 MG TABLET.DR PO SCH ×2 (08:39→21:44)
[2017-02-13] MEDS: BOOST PLUS 237 ML LIQUID (RICH CHOCOLATE) PO SCH ×3 (08:41→17:21)
[2017-02-13] MEDS: HYDROXYZINE PAMOATE 25 MG CAPSULE PO PRN ×2 (08:53→21:44)
--- NOTE | 2017-02-13 08:53 | NUR ---
PRN VISTARIL Patient c/o increase anxiety, provided patient with non pharmacological interventions with no relief. Administered PRN Vistaril as ordered, will monitor effectiveness of medication.
[2017-02-13] MEDS ORDERED: DIAZEPAM 5 MG TABLET PO SCH (09:00)
--- NOTE | 2017-02-13 09:53 | NUR ---
VISTARIL REASSESSMENT Patient reports medication, effective, feels less anxious. will continue to monitor.
--- NOTE | 2017-02-13 09:57 | NUR ---
ENDORSED CARE Patient endorsed to staff nurse, all pertinent information discussed. All information given. Patient not in distress at this time, vital signs WNL.
--- NOTE | 2017-02-13 09:58 | NUR ---
Rcvd endorsement from day shift nurse, client is in room, he is a/ox4, he was admitted to [facility] on 02/07/17 for withdrawal from benzodiazepines and opiates. He completed 3 say Subutex taper on 02/10/17. He continues on modified 8 day Diazepam taper, tolerating well. PRN Vistaril 50mg PO for anxiety, noted effective. He reports allergy to Trazodone, regular diet, full code. Side rails x 2 up/padded. Bed in lowest/locked position. Call light within reach.
[2017-02-13] MEDS ORDERED: BUPRENORPHINE HCL 2 MG TAB.SUBL SL PRN ×2 (12:30)
--- NOTE | 2017-02-13 12:34 | NUR ---
PRN Indomethacin 50mg PO administered for facial pain 07/02. Call light within reach.
[2017-02-13 12:48] VITALS: BP 128/74
--- NOTE | 2017-02-13 13:34 | NUR ---
Reassessment PRN Indomethacin 50mg PO administered for facial pain 0/10. Call light within reach
[2017-02-13] MEDS: GABAPENTIN 300 MG CAPSULE PO SCH ×2 (14:30→21:43)
--- NOTE | 2017-02-13 15:33 | NUR ---
PRN Subutex 2mg SL administered for COWS 8, client reports chills, sweats, severe joint pain, anxiety, irritability. Call light within reach.
--- NOTE | 2017-02-13 16:03 | NUR ---
Reassessment PRN Subutex 2mg SL administered, client reports feeling better, he was able to join group therapy for skills to maintain sober. COWS 4.
[2017-02-13 16:57] VITALS: BP 108/48
--- NOTE | 2017-02-13 17:22 | NUR ---
PRN Indomethacin 50mg PO administered for facial pain. Call light within reach.
--- NOTE | 2017-02-13 18:22 | NUR ---
Reassessment PRN Indomethacin 50mg PO, client reports relief from facial pain 0/10 from previous 4/10. Call light within reach.
--- NOTE | 2017-02-13 19:07 | NUR ---
END OF SHIFT Client is in room, he is a/ox4, he was admitted to [facility] on 02/07/17 for withdrawal from benzodiazepines and opiates. He completed 3 say Subutex taper on 02/10/17. He continues on modified 8 day Diazepam taper, tolerating well. Last CIWA 3/COWS 4 @ 1630. PRN Indomethacin 50mg PO x 2 for facial pain, Subutex 2mf SL for COWS 8, noted effective. Adequate PO fluid intake 2100mL, void x 4, stool x 2. Client is compliant with group therapy. He reports allergy to Trazodone, regular diet, full code. Side rails x 2 up/padded. Bed in lowest/locked position. Call light within reach. Endorsed to incoming nurse.
[2017-02-13 20:00] VITALS: BP 121/65
--- NOTE | 2017-02-13 20:00 | NUR ---
START OF SHIFT NOTE RECEIVED REPORT FROM DAY SHIFT NURSE. PATIENT IS A 42 YEAR OLD MALE ADMITTED FOR BENZO/SUBUTEX DEPENDENCE. PATIENT IS ON MODIFIED VALIUM TAPER. PATIENT REPORTS PMH HEMICRANIA CONTINUA (RIGHT SIDE). ALLERGIC TO TRAZADONE. PATIENT WAS GIVEN PRN INDOMETHACIN AND SUBUTEX . LAST COWS 4 AND CIWA 3. RECEIVED PATIENT ALERT AND ORIENTED X 4. PATIENT REPORTS ANXIETY, SWEATING, NOTED IRRITABLE. NO N/V. DENIES ANY PAIN. RESPIRATION EVEN AND UNLABORED. WILL CONTINUE TO MONITOR.
[2017-02-13] MEDS: QUETIAPINE FUMARATE 25 MG TABLET PO PRN (21:44)
--- NOTE | 2017-02-13 21:44 | NUR ---
PRN VISTARIL AND SEROQUEL ADMINISTRATION PATIENT REQUESTS FOR SLEEP AID AND C/O ANXIETY. WILL MONITOR FOR EFFECTIVENESS
--- NOTE | 2017-02-13 22:44 | NUR ---
PRN VISTARIL AND SEROQUEL RE-ASSESSMENT PATIENT IN BED WITH HIS EYES CLOSED. RESPIRATION EVEN AND UNLABORED. WILL CONTINUE TO MONITOR.
--- NOTE | 2017-02-14 | NUR ---
COWS AND CIWA DEFERRED PATIENT SLEEPING. COWS AND CIWA DEFERRED. VS REFUSED. RESPIRATION EVEN AND UNLABORED. SAFETY MEASURES IN PLACE. CALL LIGHT IN REACH. WILL CONTINUE TO MONITOR.
[2017-02-14] MEDS: INDOMETHACIN 50 MG PO PRN ×3 (07:09→18:21)
--- NOTE | 2017-02-14 07:09 | NUR ---
PRN INDOMETHACIN ADMINISTRATION PATIENT C/O 4/10 HEADACHE. WILL MONITOR FOR EFFECTIVENESS
--- NOTE | 2017-02-14 07:19 | NUR ---
END OF SHIFT NOTE PATIENT CONTINUE ON VALIUM TAPER FOR BENZO/OPIATE DEPENDENCE. PATIENT COMPLIANT WITH MEDICATION AND TREATMENT PLAN. PATIENT WAS GIVEN PRN VISTARIL AND SEROQUEL AT 2144 FOR SLEEP AND ANXIETY. AT 0709, PATIENT C/O HEADACHE 06/02, PRN INDOMETHACIN GIVEN. CONTINUE ENCOURAGE FLUID AND CONTINUE TO MONITOR WITHDRAWAL SYMPTOMS . SAFETY MEASURES IN PLACE. ENDORSE TO NEXT SHIFT TO RE-ASSESS INDOMETHACIN. SLEPT 7 HOURS. FLUID INTAKE 750 ML. VOIDED X 1 . NO BM. LAST COWS 4 AND CIWA 4.
[2017-02-14 08:00] VITALS: BP 116/56
--- NOTE | 2017-02-14 08:00 | NUR ---
START OF SHIFT: RECEIVED PT A/O X 4. HE STATES HE SLEPT OK. HE REPORTS ANXIETY AND RESTLESSNESS. VALIUM TAPER IN PROGRESS TO MANAGE S/S OF W/D. COWS 2 CIWA 4. ENCOURAGED INCREASED FLUIDS TO ASSIST IN FACILITATING DETOX PROCESS. HE STATES HE IS HAVING TROUBLE MOVING HIS BOWELS THIS MORNING. HE IS REQUESTING M.O.M. WILL CONTINUE TO OFFER SUPPORT AND MONITOR AND MANAGE S/S OF W/D. Addendum: 02/14/17 at 0934 by ARUNA ACOSTA RN COWS 4. PRN VISTARIL GIVEN FOR ANXIETY
[2017-02-14] MEDS: BACLOFEN 20 MG TABLET PO SCH ×3 (08:43→21:26)
[2017-02-14] MEDS: BOOST PLUS 237 ML LIQUID (RICH CHOCOLATE) PO SCH ×3 (08:43→17:08)
[2017-02-14] MEDS: HYDROXYZINE PAMOATE 25 MG CAPSULE PO PRN ×3 (08:43→21:26)
[2017-02-14] MEDS: DIAZEPAM 5 MG TABLET PO SCH ×2 (08:44→21:27)
[2017-02-14] MEDS: PANTOPRAZOLE SODIUM 40 MG TABLET.DR PO SCH ×2 (08:44→21:26)
[2017-02-14] MEDS: GABAPENTIN 300 MG CAPSULE PO SCH ×3 (08:44→21:26)
[2017-02-14] MEDS: MULTIVITAMINS,THERAPEUTIC TABLET PO SCH (08:44)
[2017-02-14] MEDS: CLONIDINE HCL 0.1 MG TABLET PO SCH ×3 (08:45→21:26)
[2017-02-14] MEDS: MAGNESIUM HYDROXIDE 30 ML LIQUID UDC PO PRN (08:51)
--- NOTE | 2017-02-14 10:30 | NUR ---
PRN VISTARIL EFFECTIVE. PT STATES HE FEELS LESS ANXIOUS.
[2017-02-14 12:00] VITALS: BP 116/52
--- NOTE | 2017-02-14 12:24 | NUR ---
THerapist prompted client to come into group. client agreed to come to group.
--- NOTE | 2017-02-14 14:45 | NUR ---
PRN VISTARIL AND PRN INDOCIN GIVEN FOR REPORTED ANXIETY AND FACE PAIN 4/10.
--- NOTE | 2017-02-14 15:45 | NUR ---
PT STATES INDOCIN AND VISTARIL WERE EFFECTIVE.
[2017-02-14 16:00] VITALS: BP 111/50
--- NOTE | 2017-02-14 18:30 | NUR ---
END OF SHIFT: PT CONTINUES ON VALIUM TAPER. LAST CIWA 4 COWS 4. HE C/O ANXIETY INTERMITTENTLY AND PRN VISTARIL GIVEN X 2 AND EFFECTIVE. PT ALSO C/O FACIAL PAIN AND INDOCIN PRN GIVEN AND EFFECTIVE. PT STATES HE IS MOTIVATED TOWARD RECOVERY. PT IS ATTENDING GROUPS AND COMPLIANT WITH MEDS. WILL PASS SHIFT REPORT TO ONCOMING NIGHT NURSE.
[2017-02-14 20:00] VITALS: BP 140/79
--- NOTE | 2017-02-14 20:00 | NUR ---
START OF SHIFT NOTE RECEIVED REPORT FROM DAY SHIFT NURSE. PATIENT IS A 42 YEAR OLD MALE ADMITTED FOR BENZO/OPIATE DEPENDENCE. CONTINUE ON VALIUM TAPER. PATIENT ALLERGIC TO TRAZADONE. NO SEIZURE HISTORY. PATIENT WAS GIVEN PRN INDOMETHACIN X 2 AND VISTARIL X 2. LAST COWS 4 AND CIWA 4. RECEIVED PATIENT ALERT AND ORIENTED X 4. RESPIRATION EVEN AND UNLABORED. PATIENT DENIES PAIN AT THIS TIME , ANXIOUS, NOTED RESTLESS BUT STATES HE FEELS BETTER. ON FALL PRECAUTION. SAFETY MEASURES IN PLACE. CALL LIGHT IN REACH. WILL CONTINUE TO MONITOR
[2017-02-14] MEDS: QUETIAPINE FUMARATE 25 MG TABLET PO PRN (21:26)
--- NOTE | 2017-02-14 21:26 | NUR ---
PRN VISTARIL AND SEROQUEL ADMINISTRATION PATIENT C/O ANXIETY AND REQUESTS FOR SLEEP AID. WILL MONITOR FOR EFFECTIVENESS
--- NOTE | 2017-02-14 22:26 | NUR ---
PRN VISTARIL AND SEROQUEL RE-ASSESSMENT PATIENT ASLEEP AT THIS TIME. RESPIRATION EVEN AND UNLABORED. SAFETY MEASURES IN PLACE. CALL LIGHT IN REACH. WILL CONTINUE TO MONITOR.
--- NOTE | 2017-02-15 07:09 | NUR ---
END OF SHIFT NOTE PATIENT SLEPT 8 HOURS. FLUID 1,200 INTAKE ML. VOIDED X 2 . NO BM. PATIENT COMPLIANT WITH MEDICATION AND TREATMENT PLAN. PATIENT C/O ANXIETY, NOTED RESTLESS BUT HE STATES HE FELT BETTER BEGINNING OF SHIFT. PATIENT ON VALIUM TAPER TO MANAGE WITHDRAWAL SYMPTOMS, TOLERATED WELL AND NO ADVERSE REACTION. NO C/O OF PAIN THROUGHOUT SHIFT. PATIENT LAST COWS 4 AND CIWA 2. PATIENT ATTENDED GROUPS. AT 2125,PATIENT C/O ANXIETY AND REQUESTS FOR SLEEP AID. PRN BENADRYL AND SEROQUEL GIVEN, EFFECTIVE. ON FALL PRECAUTION. WILL CONTINUE TO MONITOR.
[2017-02-15] MEDS: INDOMETHACIN 50 MG PO PRN ×3 (07:26→18:31)
--- NOTE | 2017-02-15 07:26 | NUR ---
PRN medication; Patient is complaining of facial pain/headache. PRN home medication indomethacin given to patient. Will continue to monitor for effectiveness of medication.
--- NOTE | 2017-02-15 07:50 | NUR ---
Start of shift note; Received report from night nurse. Patient is a 42 year old male admitted on 02/07/17 for Benzodiazepine and Opiate dependence. Patient was placed on a modified Valium taper, no adverse reactions noted. Patient reported history of hemicrania continue. Patient is on full code status, regular diet, allergic to trazodone. Patient slept for 8 hours. Patient's last COWS is 4, CIWA 2. Patient is on fall and seizure precaution. Bed in lowest position, call light within reach. Will continue to monitor patient.
[2017-02-15 08:00] VITALS: BP 120/61
--- NOTE | 2017-02-15 08:26 | NUR ---
Re-assessment; Patient Currently denies headache or facial pain. Will continue to monitor patient.
[2017-02-15] MEDS: CLONIDINE HCL 0.1 MG TABLET PO SCH ×3 (08:34→21:00)
[2017-02-15] MEDS: HYDROXYZINE PAMOATE 25 MG CAPSULE PO PRN ×2 (08:34→21:17)
[2017-02-15] MEDS: MULTIVITAMINS,THERAPEUTIC TABLET PO SCH (08:34)
[2017-02-15] MEDS: BACLOFEN 20 MG TABLET PO SCH ×3 (08:34→21:16)
[2017-02-15] MEDS: GABAPENTIN 300 MG CAPSULE PO SCH ×3 (08:34→21:17)
[2017-02-15] MEDS: PANTOPRAZOLE SODIUM 40 MG TABLET.DR PO SCH ×2 (08:34→21:16)
--- NOTE | 2017-02-15 08:34 | NUR ---
PRN medication; Patient appears to be very anxious with HR of 102, unable to sit still. PRN Vistaril 50mg PO given as ordered for anxiety. Will continue to monitor for effectiveness of medication.
[2017-02-15] MEDS: BOOST PLUS 237 ML LIQUID (RICH CHOCOLATE) PO SCH ×3 (09:00→17:27)
[2017-02-15] MEDS ORDERED: DIAZEPAM 5 MG TABLET PO SCH (09:00)
--- NOTE | 2017-02-15 09:34 | NUR ---
Re-assessment; Patient is calm and comfortable. PRN medication noted to be effective.
[2017-02-15 12:00] VITALS: BP 98/86
[2017-02-15] MEDS ORDERED: BUPRENORPHINE HCL 2 MG TAB.SUBL SL ONE (12:00)
--- NOTE | 2017-02-15 12:00 | NUR ---
MD order; MD ordered one time dose of Subutex 2mg SL to prevent further Opiate withdrawals manifested by body aches, anxiety, agitation, restlessness. Will continue to monitor patient for effectiveness of medication.
--- NOTE | 2017-02-15 12:30 | NUR ---
Re-assessment; Patient appears calm and comfortable, less anxiety and less restlessness noted. Medication noted to be effective.
--- NOTE | 2017-02-15 13:13 | NUR ---
PRN medication; Patient is complaining of facial pain/headache. PRN home medication indomethacin given to patient. Will continue to monitor for effectiveness of medication.
--- NOTE | 2017-02-15 14:13 | NUR ---
Re-assessment; Patient Currently denies headache or facial pain. Will continue to monitor patient.
--- NOTE | 2017-02-15 15:08 | NUR ---
Therapist prompted client about group times. Client stated he would attend all groups today.
[2017-02-15 16:00] VITALS: BP 116/67
[2017-02-15] MEDS ORDERED: QUET25TA PO (16:57)
[2017-02-15] MEDS ORDERED: CLON0.1T14 PO (16:57)
[2017-02-15] MEDS ORDERED: TRAZ-144 PO (16:57)
[2017-02-15] MEDS ORDERED: BACL20TA PO (16:57)
[2017-02-15] MEDS ORDERED: PANT40TA2 PO (16:57)
[2017-02-15] MEDS ORDERED: HYDR-3895 PO (16:57)
[2017-02-15] MEDS ORDERED: DICY20TA28 PO (16:57)
[2017-02-15] MEDS ORDERED: NICO4GUM38 BC (16:57)
[2017-02-15] MEDS ORDERED: INDO50CA PO (16:57)
[2017-02-15] MEDS ORDERED: GABA-534 PO (16:57)
--- NOTE | 2017-02-15 18:57 | NUR ---
End of shift note; Patient is AOX4. Patient is a 42 year old male admitted on 02/07/17 for Benzodiazepine and Opiate dependence. Patient was placed on a modified Valium taper, no adverse reactions noted. Patient reported history of hemicrania continue. Patient is on full code status, regular diet, allergic to trazodone. Patient remained compliant with treatment plan and medication regime. Medications noted to be effective in reducing withdrawal symptoms. All safety measures secured.
--- NOTE | 2017-02-15 19:10 | NUR ---
PRN medication; Patient is complaining of facial pain/headache. PRN home medication indomethacin given to patient. Will endorse to night nurse for re-assessment.
--- NOTE | 2017-02-15 19:15 | NUR ---
START OF SHIFT Received 42 year old male patient admitted on 02/07/17 for Xanax and Subutex dependency. Pt is full code with allergy to Trazodone. He reports a PMHx of hemicranias continua (right side). He reports using Xanax 6 mg daily for 5 months. Last dose was 6 mg on 02/06/17. And Subutex 8 mg daily for 5 months. Last dose was 02/05/17. He completed a 5 day Valium and modified Subutex taper and tolerated well. He is scheduled to be DC tomorrow 02/16/17 to [facility]. Per endorsement, he received a PRN Vistaril and one time dose of Subutex. Pt is alert and oriented x4, breathing is even and unlabored. Safety measures in place. Will continue to monitor.
[2017-02-15 20:00] VITALS: BP 129/49
--- NOTE | 2017-02-15 20:10 | NUR ---
PRN REASSESSMENT PRN medication effective. Pt reports decrease in facial pain/headache. Will continue to monitor.
[2017-02-15] MEDS ORDERED: TRAZODONE 50 MG TABLET PO SCH (21:00)
[2017-02-15] MEDS: QUETIAPINE FUMARATE 25 MG TABLET PO PRN (21:16)
--- NOTE | 2017-02-15 21:17 | NUR ---
PRN VISTARIL/SEROQUEL Pt complains of anxiety and insomnia. PRN Vistaril and Seroquel administered as ordered. Will monitor effectiveness.
--- NOTE | 2017-02-15 22:17 | NUR ---
PRN VISTARIL/SEROQUEL REASSESSMENT PRN medications effective. Pt is lying in bed with eyes closed noted to be asleep. No facial grimacing noted. Will monitor.
--- NOTE | 2017-02-16 | NUR ---
VITALS REFUSED, COWS/CIWA DEFERRED pt refused 0000 vitals. COWS and CIWA deferred d/t pt lying in bed with eyes closed noted to be asleep. Breathing even and unlabored. Safety measures in place. Will monitor.
--- NOTE | 2017-02-16 04:00 | NUR ---
VITALS REFUSED, COWS/CIWA DEFERRED pt refused 0400 vitals. COWS and CIWA deferred d/t pt lying in bed with eyes closed noted to be asleep. Breathing even and unlabored. Safety measures in place. Will monitor.
--- NOTE | 2017-02-16 06:51 | NUR ---
PRN INDOMETHACIN Pt complains of facial pain and headache. PRN home medication of indomethacin administered as ordered. Will endorse to day shift nurse to reassess.
[2017-02-16] MEDS: INDOMETHACIN 50 MG PO PRN (06:53)
--- NOTE | 2017-02-16 07:05 | NUR ---
END OF SHIFT Pt is a 42 year old male patient admitted on 02/07/17 for Xanax and Subutex dependency. Pt is full code with allergy to Trazodone. He reports a PMHx of hemicranias continua (right side). He is scheduled to be DC today ( 02/16/17) to [facility], [place]. At 2115 he received PRN Vistaril and Seroquel. He slept a total of 8 hrs, Intake:700mL, Void: x3, BM:0, COWS:4, CIWA:2. Pt remains alert and oriented x4, breathing is even and unlabored. Safety measures in place. Endorsed to AM shift.
--- NOTE | 2017-02-16 07:59 | NUR ---
Start of shift note; Received report from night nurse. Patient is a 42 year old male admitted on 02/07/17 for Benzodiazepine and Opiate dependence. Patient was placed on a modified Valium taper, no adverse reactions noted. Patient reported history of hemicrania continue. Patient is on full code status, regular diet, allergic to trazodone. Patient slept for 8 hours. Patient's last COWS is 2, CIWA 2. Patient is on fall and seizure precaution. Bed in lowest position, call light within reach. Patient is medically cleared for discharge today. Will continue to monitor patient.
[2017-02-16 08:00] VITALS: BP 130/60
[2017-02-16] MEDS: BOOST PLUS 237 ML LIQUID (RICH CHOCOLATE) PO SCH (09:00)
[2017-02-16 09:13] VITALS: BP 130/60
[2017-02-16] MEDS: MULTIVITAMINS,THERAPEUTIC TABLET PO SCH (09:13)
[2017-02-16] MEDS: CLONIDINE HCL 0.1 MG TABLET PO SCH (09:13)
[2017-02-16] MEDS: GABAPENTIN 300 MG CAPSULE PO SCH (09:13)
[2017-02-16] MEDS: PANTOPRAZOLE SODIUM 40 MG TABLET.DR PO SCH (09:13)
[2017-02-16] MEDS: BACLOFEN 20 MG TABLET PO SCH (09:13)
[2017-02-16] MEDS: HYDROXYZINE PAMOATE 25 MG CAPSULE PO PRN (09:13)
--- NOTE | 2017-02-16 09:30 | NUR ---
Discharge note; Patient is AOX4. Patient is medically cleared for discharge per MD. All valuables, belongings and prescriptions and medications given to patient. Patient was escorted out of the hospital by AIR TRAFFIC CONTROL SPECIALIST, patient left at exactly 0930 on 02/16/17. Patient left in a stable condition. Met all needs.
== END 2017-02-16 09:30 | disposition other institution (70) | DRG 772 ==
LOC: SRC 18:34
PROVIDERS: ADMIT Internal Medicine; ATTEND Internal Medicine
PROC: HZ2ZZZZ Detoxification Services for Substance Abuse Treatment (ICD-10-PCS; principal; 2017-02-07)
PROC: HZ41ZZZ Group Counseling for Substance Abuse Treatment, Behavioral (ICD-10-PCS; 2017-02-09)
PROC: HZ31ZZZ Individual Counseling for Substance Abuse Treatment, Behavioral (ICD-10-PCS; 2017-02-10)
DX: F11.23 Opioid dependence with withdrawal (principal); K27.7 Chronic peptic ulcer, site unspecified, without hemorrhage or perforation; B18.2 Chronic viral hepatitis C; F41.9 Anxiety disorder, unspecified; F13.230 Sedative, hypnotic or anxiolytic dependence with withdrawal, uncomplicated; F17.210 Nicotine dependence, cigarettes, uncomplicated; G43.909 Migraine, unspecified, not intractable, without status migrainosus; Z81.1 Family history of alcohol abuse and dependence; Z59.0 Homelessness; G47.00 Insomnia, unspecified; G44.51 Hemicrania continua; Z59.1 Inadequate housing; F32.9 Major depressive disorder, single episode, unspecified; D64.9 Anemia, unspecified; F12.90 Cannabis use, unspecified, uncomplicated
CPT/HCPCS: 36415; 70030-TC; 80307; 83690; 83735; 84443; 85025; 86580; 86592; 86705; 86803; 87340; 87806; A4663; A9150; G0480